=== PATIENT | male | born 2000 | race African-American/Black ===

== ENCOUNTER 2021-05-28 10:20 | Outpatient (CLI) | payer OTHER ==
--- NOTE | 2021-05-28 16:56 | MRI Report ---
PROCEDURE: Knee LT W/O INDICATIONS: LEFT ACL TEAR TECHNIQUE: Noncontrast sagittal PD fast spin echo and T2 fast spin echo with fat saturation, sagittal 3-D gradie nt sequence with fat saturation; coronal T1 spin echo and PD fast spin echo with fat saturation, and axial PD fast spin echo with fat saturation through the knee. COMPARISON: None. FINDINGS: Image quality: Excellent. Menisci: The medial meniscus is intact. Vertically oriented linear high signal intensity traverses t he lateral meniscal body, indicating radial tearing. Cruciate ligaments: Full-thickness tearing of the anterior cruciate ligament is present. Posterior cr uciate ligament is intact. Medial structures: The medial collateral ligament appears intact. Visualized portions of the pes ans erinus tendons appear normal. No abnormal bursal fluid. Lateral structures: Mild T2 signal elevation surrounds the lateral collateral ligament. The lateral c ollateral ligament, long and short heads of the biceps femoris tendon appear intact. The popliteus t endon appears normal. Iliotibial band appears normal. Anterior structures: The quadriceps and patellar tendons appear intact. Patellar alignment is abad l. No femoral trochlear dysplasia or ventral trochlear prominence. No edema in the infrapatellar fa t pad. Bones and cartilage: Mild impaction of the anterior weightbearing aspect of the lateral femoral condy le which is impacted by roughly 2 mm overlying a roughly 15 mm anteroposterior span. Mild ill-defined underlying T2 signal elevation within the weightbearing aspect of the lateral femoral condyle anteri shaun, consistent with underlying contusion. Moderate ill-defined T2 signal elevation within the poste rior weightbearing aspects of the medial and lateral tibial plateau. Joint space: There is a moderate knee joint effusion and a small Blake's cyst. Normal appearing syn ovial plicae are incidentally noted. IMPRESSION: 1. Mildly impacted fracture of the lateral femoral condyle anteriorly. Contusions within the lateral and medial tibial plateau. 2. Full-thickness anterior cruciate ligament tear. 3. Lateral meniscal tearing. 4. Lateral collateral ligament strain. 5. Knee joint effusion and Blake's cyst. Reviewed by: Jessica Swift MD on 05/28/2021 4:55 PM PST Approved by: Jessica Swift MD on 05/28/2021 4:55 PM PST Station ID: [id number]
== END 2021-05-28 10:21 | disposition home or self-care (01) ==
LOC: DI 10:20
PROVIDERS: ATTEND Orthopaedic Surgery
DX: M23.612 Other spontaneous disruption of anterior cruciate ligament of left knee (principal); S72.422A Displaced fracture of lateral condyle of left femur, initial encounter for closed fracture; S83.512A Sprain of anterior cruciate ligament of left knee, initial encounter; S83.282A Other tear of lateral meniscus, current injury, left knee, initial encounter; S83.422A Sprain of lateral collateral ligament of left knee, initial encounter; M71.22 Synovial cyst of popliteal space [Baker], left knee